=== PATIENT | male | born 1975 | race Hispanic/Latino ===

== ENCOUNTER 2018-04-12 09:04 | Emergency (ER) | payer SELFPAY ==
[~2018-04-12] VITALS: Ht 157.5 cm; Wt 76.2 kg
[~2018-04-12 09:04] MED LIST: CEPHALEXIN500 MG PO; NO HOME MEDS
[2018-04-12 09:59] LABS: URINE BILIRUBIN - DIPSTICK NEGATIVE (NEGATIVE); URINE BLOOD DIPSTICK NEGATIVE (NEGATIVE); URINE COLOR YELLOW; URINE GLUCOSE - DIPSTICK NEGATIVE (NEGATIVE); URINE KETONE NEGATIVE (NEGATIVE); URINE LEUK ESTERASE NEGATIVE (NEGATIVE); URINE NITRITE - DIPSTICK NEGATIVE (Negative); URINE PROTEIN - DIPSTICK NEGATIVE (NEG-TRACE); URINE UROBILINOGEN - DIPSTICK 0.2 E.U./dL (0.2)
[2018-04-12 10:04] LABS: HEMATOCRIT 48.1 % (39.0-50.0); HEMOGLOBIN 16.4 g/dl (14.0-18.0); IMMATURE GRANULOCYTES 0.3 % (0.0-5.0); MEAN CELL VOLUME 83.4 fL CALC (80.0-100.0); MEAN CORPUSCULAR HGB 28.4 pG CALC (26.0-32.0); MEAN CORPUSCULAR HGB CONC 34.1 g/L CALC (32.0-36.0); NEUT# 4.19 thou/uL (1.82-7.42); RED BLOOD COUNT 5.77 mill/uL (4.70-6.10); RED CELL DISTRI WIDTH 13.2 % (11.5-15.5)
[2018-04-12 10:06] LABS: URINE CLARITY CLEAR
[2018-04-12 10:20] LABS: ALBUMIN 4.4 g/dL (3.2-5.0); ALKALINE PHOSPHATASE 74 u/l (38-126); ANION GAP 18 (6-22 (CALC)); BILIRUBIN, TOTAL 0.6 mg/dL (0.0-1.4); BUN 13 mg/dL (9-20); BUN/CREATININE RATIO 22 (12-20 (CALC)); CARBON DIOXIDE 24 mmol/l (22-30); CHLORIDE 103 mmol/l (95-108); CREATININE 0.6 mg/dL (0.7-1.3); GFR > 60 ML/MIN (>=60 (CALC)); GFR FOR AFR.AMER. > 60 ML/MIN (>=60 (CALC)); POTASSIUM 4.4 mmol/l (3.5-5.1); SGOT/AST 46 u/l (17-59); SGPT/ALT 77 u/l (21-72); SODIUM 141 mmol/l (137-146); TOTAL PROTEIN 7.7 g/dL (6.3-8.2)
[2018-04-12] MEDS ORDERED: PROTONIX40 M2 PO (12:58)
[2018-04-12] MEDS ORDERED: BENTYL10 MG PO (12:58)
[2018-04-12 13:29] VITALS: BP 149/95
== END 2018-04-12 13:32 | disposition home or self-care (01) | DRG 392 ==
LOC: ED 09:04
PROVIDERS: Emergency Medicine
DX: R10.31 Right lower quadrant pain (principal); R10.32 Left lower quadrant pain; G89.29 Other chronic pain
CPT/HCPCS: Q9967